=== PATIENT | male | born 1955 | race Two or more races ===

== ENCOUNTER 2022-02-25 02:31 | Inpatient (IN) | payer OTHER ==
[2022-02-25] MEDS ORDERED: methylPREDNISolone NA SUCC 125 MG/2 ML VIAL IVPUSH ONE (02:40)
[2022-02-25] MEDS ORDERED: LIDOCAINE HCL 2% (20ML MULTI-DOSE VIAL) ONE (02:50)
[2022-02-25 03:01] LABS: BASO % 0.9 % (0-2.0); EOS % 2.9 % (0-4.5); HEMATOCRIT 45.1 % (35.4-49); HEMOGLOBIN 15.1 GM/dL (11.7-16.9); LYMPH % 42.7 % (8-40); MCH 26.8 pg (25.7-33.7); MCHC 33.5 g/dl (32.0-35.9); MEAN CELL VOLUME 80.1 fl (80-96); MEAN PLT VOLUME 7.6 fl (7.5-11.1); MONO % 13.7 % (3.8-10.2); NEUT % 39.8 % (42.8-82.8); PLATELET COUNT 215 10^3/uL (134-434); RBC 5.63 M/mm3 (4.00-5.60); RDW 13.5 % (11.9-15.9)
[2022-02-25] MEDS ORDERED: MIDAZOLAM HCL 2 MG/2 ML SINGLE DOSE VIAL IVPUSH ONE (03:17)
[2022-02-25] MEDS ORDERED: KETAMINE HCL 200 MG/20 ML VIAL IVPUSH ONE (03:17)
[2022-02-25] MEDS ORDERED: KETAMINE HCL 200 MG/20 ML VIAL ONE (03:20)
[2022-02-25] MEDS ORDERED: MIDAZOLAM HCL 2 MG/2 ML SINGLE DOSE VIAL ONE (03:20)
[2022-02-25] MEDS ORDERED: RACEPINEPHRINE IH SOL 2.25% 11.25 MG/0.5 ML VIAL IH PRN (03:44)
[2022-02-25] MEDS ORDERED: methylPREDNISolone NA SUCC 40 MG/1 ML VIAL IVPUSH SCH ×2 (03:45→09:00)
[2022-02-25 03:49] LABS: BLOOD UREA NITROGEN 25.2 mg/dL (7-18); CALCIUM 9.1 mg/dL (8.5-10.1)
[2022-02-25 03:53] LABS: CREATININE 1.2 mg/dL (0.55-1.3)
[2022-02-25 03:54] LABS: BILIRUBIN,TOTAL 0.4 mg/dL (0.2-1); TOT PROT 7.7 g/dl (6.4-8.2)
[2022-02-25 04:03] LABS: INR 1.09 (0.83-1.09); PROTHROMBIN TIME (PATIENT) 12.5 SEC (9.7-13.0)
[2022-02-25 04:06] LABS: ACTIVATED PTT 30.7 SECONDS (25.2-36.5)
[2022-02-25] MEDS: LOSARTAN POTASSIUM 50 MG TABLET PO SCH (11:45)
[2022-02-25] MEDS: HEPARIN NA (PORCINE) 5,000 UNITS/ML 1ML VIAL SQ SCH ×2 (13:55→22:00)
[2022-02-25] MEDS: methylPREDNISolone NA SUCC 40 MG/1 ML VIAL IVPUSH SCH (17:03)
[2022-02-26] MEDS: methylPREDNISolone NA SUCC 40 MG/1 ML VIAL IVPUSH SCH ×3 (02:46→17:54)
[2022-02-26] MEDS: HEPARIN NA (PORCINE) 5,000 UNITS/ML 1ML VIAL SQ SCH ×3 (06:21→21:27)
[2022-02-26 07:20] LABS: HEMATOCRIT 41.8 % (35.4-49); MCH 26.9 pg (25.7-33.7); MCHC 33.6 g/dl (32.0-35.9); MEAN PLT VOLUME 7.4 fl (7.5-11.1); PLATELET COUNT 219 10^3/uL (134-434); RBC 5.22 M/mm3 (4.00-5.60); RDW 13.7 % (11.9-15.9); WHITE BLOOD COUNT 12.9 K/mm3 (4.0-10.0)
[2022-02-26 07:37] LABS: CALCIUM 9.2 mg/dL (8.5-10.1)
[2022-02-26 07:39] LABS: ALBUMIN 3.6 g/dl (3.4-5.0); BLOOD UREA NITROGEN 27.5 mg/dL (7-18); MAGNESIUM 2.4 mg/dL (1.8-2.4)
[2022-02-26 07:42] LABS: BILIRUBIN,TOTAL 0.4 mg/dL (0.2-1); CREATININE 1.2 mg/dL (0.55-1.3)
[2022-02-26] MEDS: LOSARTAN POTASSIUM 50 MG TABLET PO SCH (09:25)
[2022-02-26 12:12] LABS: ANISOCYTOSIS 2+; MACROCYTOSIS 0; TEAR DROP CELLS 2+
[2022-02-26 19:18] LABS: PH,URINE 6.5 (5.0-8.0); URINE APPEARANCE CLEAR; URINE BILIRUBIN NEGATIVE (NEGATIVE); URINE COLOR YELLOW; URINE GLUCOSE (UA) NEGATIVE (NEGATIVE); URINE KETONE NEGATIVE (NEGATIVE); URINE LEUK ESTERASE NEGATIVE (NEGATIVE); URINE NITRITE NEGATIVE (NEGATIVE); URINE PROTEIN NEGATIVE (NEGATIVE); URINE UROBILINOGEN 0.2 mg/dL (0.2-1.0)
[2022-02-27] MEDS: methylPREDNISolone NA SUCC 40 MG/1 ML VIAL IVPUSH SCH ×2 (01:47→10:30)
[2022-02-27] MEDS: HEPARIN NA (PORCINE) 5,000 UNITS/ML 1ML VIAL SQ SCH ×2 (07:01→15:49)
[2022-02-27 07:04] LABS: HEMATOCRIT 45.9 % (35.4-49); MCH 26.4 pg (25.7-33.7); MCHC 32.7 g/dl (32.0-35.9); MEAN PLT VOLUME 8.1 fl (7.5-11.1); PLATELET COUNT 261 10^3/uL (134-434); RBC 5.66 M/mm3 (4.00-5.60); WHITE BLOOD COUNT 12.2 K/mm3 (4.0-10.0)
[2022-02-27 07:26] LABS: CALCIUM 9.5 mg/dL (8.5-10.1)
[2022-02-27 07:27] LABS: BLOOD UREA NITROGEN 32.4 mg/dL (7-18)
[2022-02-27 07:40] VITALS: PULSE 56; TEMP 98
[2022-02-27 08:16] LABS: CREATININE 1.3 mg/dL (0.55-1.3)
[2022-02-27] MEDS ORDERED: amLODIPine BESYLATE 5 MG TABLET (FP) PO SCH (10:00)
[2022-02-27 10:04] LABS: ANISOCYTOSIS 3+; MACROCYTOSIS 0
[2022-02-27 12:01] VITALS: BP 149/82
[2022-02-27 16:19] VITALS: BMI 27.3
[2022-02-27] MEDS ORDERED: methylPREDNISolone NA SUCC 40 MG/1 ML VIAL IVPUSH SCH (22:00)
[2022-02-28 18:09] LABS: FREE KAPPA,SERUM 14.2 mg/L (3.3-19.4)
== END 2022-02-27 18:12 | disposition home or self-care (01) | DRG 811 ==
LOC: JER 02:31 → JERBED 03:24 → JICU 06:25
PROVIDERS: ADMIT Internal Medicine; ATTEND Internal Medicine
DX: T78.3XXA Angioneurotic edema, initial encounter (principal); T46.4X5A Adverse effect of angiotensin-converting-enzyme inhibitors, initial encounter; I10 Essential (primary) hypertension; Y92.89 Other specified places as the place of occurrence of the external cause; R79.89 Other specified abnormal findings of blood chemistry
CPT/HCPCS: 36415; 71045-TC-FY; 76700-TC; 80048; 80053; 81003; 82607; 82728; 82747; 83540; 83550; 83735; 83883; 84100; 84155; 84156; 84157; 84165; 85014; 85025; 85027; 85610; 85730; 86160; 86162; 86850; 86900; 86901; 93005; 93010; 99291; 99292; C9803-CS; J1644; U0003; U0005